=== PATIENT | female | born 1955 | race Caucasian/White ===

== ENCOUNTER 2017-02-05 08:00 | Outpatient (CLI) | payer OTHER | END 2017-02-05 23:59 | DX: R20.2 Paresthesia of skin (principal) ==

== ENCOUNTER 2017-02-07 09:36 | Outpatient (CLI) | payer OTHER | END 2017-02-07 23:59 | DX: R73.9 Hyperglycemia, unspecified (principal) ==

== ENCOUNTER 2017-05-15 06:52 | Outpatient (CLI) | payer OTHER ==
[2017-05-15 07:33] LABS: ALBUMIN/GLOBULIN RATIO 1.4 (1.0-2.2); BILIRUBIN,TOTAL 0.6 mg/dL (0.2-1.0); CALCIUM 9.5 mg/dL (8.5-10.3); CREATININE 0.6 mg/dL (0.4-1.0); POTASSIUM 4.3 mmol/L (3.5-5.0); TOTAL PROTEIN 7.4 g/dL (6.7-8.2)
[2017-05-15 07:35] LABS: HEMOGLOBIN A1C 0.98 g/dL
== END 2017-05-15 06:53 | disposition home or self-care (01) ==
LOC: LAB 06:52
PROVIDERS: ATTEND Physician Assistant Medical
DX: E11.9 Type 2 diabetes mellitus without complications (principal); Z79.899 Other long term (current) drug therapy
CPT/HCPCS: 36415; 80053; 83036

== ENCOUNTER 2017-08-12 07:34 | Outpatient (CLI) | payer OTHER ==
--- NOTE | 2017-08-13 15:23 | Mammography Report ---
DIGITAL SCREENING MAMMOGRAPHY: 08/12/2017 COMPARISON: 11/07/2015 TECHNIQUE: Bilateral digital CC, exaggerated CC and MLO projections. FINDINGS: The breast tissue is heterogeneously dense. There is no dominant mass, architectural dist ortion, skin thickening, suspicious microcalcifications, or significant interval change. IMPRESSION: NEGATIVE, BI-RADS 1. SUGGEST ROUTINE FOLLOWUP IN 12 MONTHS. STANDARD QUALIFYING STATEMENTS 1. This examination was reviewed with the aid of Computer-Aided Detection (CAD). 2. A negative or benign imaging report should not delay biopsy if clinically suspicious findings are present. Consider surgical consultation if warranted. More than 5% of cancers are not identified by i maging. 3. Dense breasts may obscure an underlying neoplasm. JOB #: [id number] EXT JOB #:[id number]
== END 2017-08-12 07:35 | disposition home or self-care (01) ==
LOC: DI 07:34
PROVIDERS: ATTEND Physician Assistant Medical
DX: Z12.31 Encounter for screening mammogram for malignant neoplasm of breast (principal)
CPT/HCPCS: 77067

== ENCOUNTER 2017-08-28 07:00 | Outpatient (CLI) | payer OTHER ==
[2017-08-28 08:02] LABS: HEMOGLOBIN A1C 0.89 g/dL
== END 2017-08-28 07:01 | disposition home or self-care (01) ==
LOC: LAB 07:00
PROVIDERS: ATTEND Physician Assistant Medical
DX: E11.9 Type 2 diabetes mellitus without complications (principal); Z79.899 Other long term (current) drug therapy
CPT/HCPCS: 36415; 82947; 83036

== ENCOUNTER 2017-12-30 07:01 | Outpatient (CLI) | payer OTHER ==
[2017-12-30 08:11] LABS: HEMOGLOBIN A1C 0.86 g/dL; HEMOGLOBIN A1C % 7.4 % (4.6-6.2)
== END 2017-12-30 07:02 | disposition home or self-care (01) ==
LOC: LAB 07:01
PROVIDERS: ATTEND Physician Assistant Medical
DX: E11.9 Type 2 diabetes mellitus without complications (principal); Z79.899 Other long term (current) drug therapy
CPT/HCPCS: 36415; 82947; 83036

== ENCOUNTER 2018-04-07 07:13 | Outpatient (CLI) | payer OTHER ==
[2018-04-07 08:25] LABS: HB2 TOTAL 15.5 g/dL; HEMOGLOBIN A1C 0.79 g/dL; HEMOGLOBIN A1C % 6.8 % (4.6-6.2)
== END 2018-04-07 07:14 | disposition home or self-care (01) ==
LOC: LAB 07:13
PROVIDERS: ATTEND Physician Assistant Medical
DX: E11.9 Type 2 diabetes mellitus without complications (principal); Z79.899 Other long term (current) drug therapy
CPT/HCPCS: 36415; 82947; 83036

== ENCOUNTER 2018-06-08 06:56 | Outpatient (CLI) | payer OTHER ==
[2018-06-08 07:12] LABS: BASOPHILS # (AUTO) 0.1 10^3/uL (0.0-0.1); BASOPHILS % (AUTO) 1.4 %; EOSINOPHILS # (AUTO) 0.1 10^3/uL (0.0-0.7); EOSINOPHILS % (AUTO) 1.6 %; MEAN CORPUSCULAR HEMOGLOBIN 30.8 pg (27.0-31.0); MEAN CORPUSCULAR HGB CONC 34.6 g/dL (32.0-36.0); MEAN CORPUSCULAR VOLUME 88.9 fL (81.0-99.0); MEAN PLATELET VOLUME 9.7 fL (7.9-10.8); MONOCYTES # (AUTO) 0.6 10^3/uL (0.0-1.0); MONOCYTES % (AUTO) 8.1 %; NEUTROPHILS # (AUTO) 4.7 10^3/uL (1.5-6.6); NEUTROPHILS % (AUTO) 61.9 %; PLT - PLATELET COUNT 192 10^3/uL (130-450); RED BLOOD COUNT 4.56 10^6/uL (4.20-5.40); WHITE BLOOD COUNT 7.5 x10^3/uL (4.8-10.8)
[2018-06-08 07:56] LABS: ALBUMIN 4.2 g/dL (3.2-5.5); ALBUMIN/GLOBULIN RATIO 1.2 (1.0-2.2); ALKALINE PHOSPHATASE 57 IU/L (42-121); ALT ALANINE AMINOTRANSFERASE 19 IU/L (10-60); AST ASPARTATE AMINOTRANSFERASE 20 IU/L (10-42); BILIRUBIN,TOTAL 0.8 mg/dL (0.2-1.0); BUN - BLOOD UREA NITROGEN 16 mg/dL (6-20); CALCIUM 9.6 mg/dL (8.5-10.3); CARBON DIOXIDE - CO2 25 mmol/L (21-32); CHLORIDE 102 mmol/L (101-111); CHOL/HDL RATIO 4.8 (<4.4); CHOLESTEROL 269 mg/dL; CREATININE 0.6 mg/dL (0.4-1.0); GFR - MDRD 102 (>89); GLUCOSE 136 mg/dL (70-100); HDL CHOLESTEROL 56 mg/dL; LDL CHOLESTEROL,CALCULATED 165 mg/dL; LDL/HDL RATIO 2.9 (<4.4); SODIUM 134 mmol/L (135-145); TOTAL PROTEIN 7.7 g/dL (6.7-8.2); VLDL CHOLESTEROL 48 mg/dL
[2018-06-09 15:17] LABS: HEPATITIS C ANTIBODY NON-REACTIVE (NON-REACTIVE)
== END 2018-06-08 06:57 | disposition home or self-care (01) ==
LOC: LAB 06:56
PROVIDERS: ATTEND Physician Assistant Medical
DX: Z00.00 Encounter for general adult medical examination without abnormal findings (principal); Z13.818 Encounter for screening for other digestive system disorders; Z72.9 Problem related to lifestyle, unspecified
CPT/HCPCS: 36415; 80053; 80061; 83721; 84443; 85025; 86803

== ENCOUNTER 2018-07-07 06:52 | Outpatient (CLI) | payer OTHER ==
[2018-07-07 07:39] LABS: HB2 TOTAL 14.3 g/dL; HEMOGLOBIN A1C 0.79 g/dL; HEMOGLOBIN A1C % 7.2 % (4.6-6.2)
== END 2018-07-07 06:53 | disposition home or self-care (01) ==
LOC: LAB 06:52
PROVIDERS: ATTEND Physician Assistant Medical
DX: E11.9 Type 2 diabetes mellitus without complications (principal); Z79.899 Other long term (current) drug therapy
CPT/HCPCS: 36415; 83036

== ENCOUNTER 2018-09-14 10:28 | Outpatient (CLI) | payer OTHER | END 2018-09-14 10:29 | disposition home or self-care (01) | LOC: LAB 10:28 | PROVIDERS: ATTEND Physician Assistant Medical | DX: Z79.899 Other long term (current) drug therapy (principal) | CPT/HCPCS: 36415; 82565; 84520 ==

== ENCOUNTER 2018-10-02 07:56 | Outpatient (CLI) | payer OTHER ==
[2018-10-02] MEDS ORDERED: GADOBUTROL 7.5 MMOL/7.5 ML VIAL ONE (08:16)
[2018-10-02] MEDS ORDERED: GADOBUTROL 7.5 MMOL/7.5 ML VIAL IVP ONE ×2 (10:23)
--- NOTE | 2018-10-05 15:03 | MRI Report ---
Reason: ABNORMAL BREAST FINDING Procedure Date: 10/02/2018 Accession Number: [id number] / [id number] Procedure: MRI - Breast Bilateral W/WO Contrast CPT Code: FULL RESULT: EXAM: Breast Bilateral W/WO Contrast DATE: 10/02/2018 9:17 AM CLINICAL HISTORY: ABNORMAL BREAST FINDING on outside imaging; reported as distortion in the 11 o'clock left breast. TECHNIQUE: Using a dedicated breast coil, axial precontrast STIR, T1, dynamic postcontrast axial 3-D images, axial 3-D high resolution images, and postcontrast diffusion weighted images were obtained, 7 ml of gadolinium was administered intravenously. Post-processing with dynamic contrast enhancement analysis and multi-planar reformations were performed with CyActive. COMPARISON: 2-D reconstructed images from a diagnostic 2-D/3-D mammogram dated 06/23/2018; internal mammograms 08/12/2017 and 11/07/2015 FINDINGS: Exam is technically limited as there is contrast within the heart and internal mammary vessels on precontrast scan (no pre-contrast fat-saturated T1 imaging performed). For this reason, the exam will need to be repeated for technical reasons. IMPRESSION: Technically inadequate exam will need to be repeated. Patient will be contacted and the repeat exam scheduled.
== END 2018-10-02 07:57 | disposition home or self-care (01) ==
LOC: DI 07:56
PROVIDERS: ATTEND Physician Assistant Medical
DX: R92.8 Other abnormal and inconclusive findings on diagnostic imaging of breast (principal)
CPT/HCPCS: 77059; A9585

== ENCOUNTER 2018-11-09 09:46 | Outpatient (CLI) | payer OTHER ==
[2018-11-09] MEDS ORDERED: LIDOCAINE 1% 10 ML MDV ONE (09:47)
--- NOTE | 2018-11-09 16:34 | Mammography Report ---
Reason: LEFT BREAST ASYMMETRY 9 O'CLOCK Procedure Date: 11/09/2018 Accession Number: [id number] / [id number] Procedure: TWAN - Diagnostic Dig LT CPT Code: FULL RESULT: EXAM: Diagnostic Dig LT DATE: 11/09/2018 11:34 AM CLINICAL HISTORY: Abnormal finding on outside study in the left breast. Internal breast MRI showed architectural distortion without threshold enhancement in the 9:00 breast, 4 cm from nipple, scheduled for possible 3D guided stereotactic biopsy. TECHNIQUE: Bilateral CC and MLO views were obtained. COMPARISON: Outside mammographic images 06/23/2018 through 11/07/2015. Recent breast MRI 10/02/2018. FINDINGS: The breasts demonstrate heterogeneously dense fibroglandular parenchyma bilaterally. In the 9:00 breast, 4 cm from nipple there is a 2.5 x 2.7 x 18 mm region of architectural distortion corresponding to initial mammographic finding of concern as well as breast MRI finding. There are no suspicious calcifications, no definite associated mass. IMPRESSION: 2.7 cm area of architectural distortion 9:00 left breast. Suspicious. BI-RADS Category 4. RECOMMENDATION: 3D guided stereotactic breast biopsy has been scheduled. Due to logistical reasons, biopsy will be performed later this week. BI-RADS CATEGORY 4: Suspicious. STANDARD QUALIFYING STATEMENTS: 1. This examination was not reviewed with the aid of Computer-Aided Detection (CAD). 2. A negative or benign imaging report should not preclude biopsy if clinically suspicious findings are present. 3. Dense breasts may obscure an underlying neoplasm. 4. This examination was reviewed with the aid of 3D breast imaging (tomosynthesis).
== END 2018-11-09 23:59 | disposition home or self-care (01) ==
LOC: DI 09:46
PROVIDERS: ATTEND Physician Assistant Medical
DX: R92.8 Other abnormal and inconclusive findings on diagnostic imaging of breast (principal)

== ENCOUNTER 2018-11-11 06:59 | Outpatient (CLI) | payer OTHER ==
[2018-11-11 07:40] LABS: HB2 TOTAL 14.1 g/dL; HEMOGLOBIN A1C 0.71 g/dL; HEMOGLOBIN A1C % 6.8 % (4.6-6.2)
== END 2018-11-11 07:00 | disposition home or self-care (01) ==
LOC: LAB 06:59
PROVIDERS: ATTEND Physician Assistant Medical
DX: E11.9 Type 2 diabetes mellitus without complications (principal); Z79.899 Other long term (current) drug therapy
CPT/HCPCS: 36415; 82947; 83036

== ENCOUNTER 2018-12-21 07:06 | Outpatient (CLI) | payer BC ==
[2018-12-21 07:41] LABS: CHOL/HDL RATIO 4.5 (<4.4); CHOLESTEROL 246 mg/dL; HDL CHOLESTEROL 55 mg/dL; LDL CHOLESTEROL,CALCULATED 139 mg/dL; LDL/HDL RATIO 2.5 (<4.4); VLDL CHOLESTEROL 52 mg/dL
== END 2018-12-21 07:07 | disposition home or self-care (01) ==
LOC: LAB 07:06
PROVIDERS: ATTEND Physician Assistant Medical
DX: E78.2 Mixed hyperlipidemia (principal)
CPT/HCPCS: 36415; 80061; 83721

== ENCOUNTER 2019-02-24 07:06 | Outpatient (CLI) | payer BC ==
[2019-02-24 07:44] LABS: ALBUMIN 4.2 g/dL (3.2-5.5); ALBUMIN/GLOBULIN RATIO 1.3 (1.0-2.2); BILIRUBIN,TOTAL 0.6 mg/dL (0.2-1.0); CREATININE 0.6 mg/dL (0.4-1.0); TOTAL PROTEIN 7.4 g/dL (6.7-8.2)
[2019-02-24 08:22] LABS: HB2 TOTAL 15.2 g/dL; HEMOGLOBIN A1C 0.76 g/dL; HEMOGLOBIN A1C % 6.7 % (4.6-6.2)
== END 2019-02-24 07:07 | disposition home or self-care (01) ==
LOC: LAB 07:06
PROVIDERS: ATTEND Internal Medicine
DX: E11.9 Type 2 diabetes mellitus without complications (principal)
CPT/HCPCS: 36415; 80053; 81599; 83036; 84681

== ENCOUNTER 2019-04-27 05:36 | Emergency (ER) | payer BC ==
[2019-04-27 05:43] VITALS: BP 160/84
[2019-04-27] MEDS ORDERED: PROPARACAINE 0.5% OPHTH DROPS 15 ML LEFTEYE STA (05:51)
[2019-04-27] MEDS ORDERED: NEOMYCIN/POLYMYX/DEXAMETH OPHTH OINT LEFTEYE STA (06:01)
--- NOTE | 2019-04-27 06:05 | ED Physician Documentation ---
PD HPI OPHTHO - Stated complaint Stated Complaint: L EYE PX - Chief complaint Chief Complaint: Heent - History obtained from History obtained from: Patient - History of Present Illness Timing - onset: Last night Timing - duration: Hours Timing - details: Abrupt onset, Still present Location: Left Quality / character: Throbbing, Sharp Associated symptoms: Redness, Tearing, FB sensation Contributing factors: Wears contacts Similar symptoms before: Diagnosis (corneal abrasion) Recently seen: Not recently seen - Additional information Additional information: Previously well 63-year-old female wears a single contact lens for accommodation and she try to get this out of her left eye last night and scratched her cornea. She has only been comfortable with a patch on and she is come in early this morning for treatment. She is planning on traveling tomorrow and will be driving through [employer] this afternoon. Review of Systems Constitutional: denies: Fever Eyes: reports: Irritation. denies: Decreased vision Ears: denies: Ear pain Nose: denies: Rhinorrhea / runny nose, Congestion Throat: denies: Sore throat Respiratory: denies: Cough GI: denies: Vomiting PD PAST MEDICAL HISTORY - Past Medical History Cardiovascular: Hypertension Endocrine/Autoimmune: Type 2 diabetes - Past Surgical History /[employer]: Hysterectomy, Oophrectomy - Present Medications Home Medications: Ambulatory Orders Medication Instructions Recorded Confirmed Albuterol Sulfate [Proair Hfa 1 - 2 puffs INH Q4H PRN 01/15/19 01/15/19 Inhaler] Aspirin 81 mg PO DAILY 01/15/19 01/15/19 B-Complex with Vitamin C [Super B 1 each PO DAILY 01/15/19 01/15/19 Complex-Vitamin C] Calcium Carbonate [Calcium] 500 mg PO DAILY 01/15/19 01/15/19 Cinnamon Plus Chromium 200 - 1,000 mcg PO DAILY 01/15/19 01/15/19 Estradiol 1 mg PO DAILY 01/15/19 01/15/19 Fluticasone/Salmeterol [Advair 1 each IH BID PRN 01/15/19 01/15/19 100-50 Diskus] Ibuprofen 600 mg PO BID 01/15/19 01/15/19 Lisinopril/Hydrochlorothiazide 1 each PO DAILY 01/15/19 01/15/19 [Lisinopril-Hctz 10-12.5 mg Tab] Multivitamin [Daily Multiple 1 each PO DAILY 01/15/19 01/15/19 Vitamin] Ranitidine HCl [Acid Associate Professor [employer]] 75 mg PO DAILY 01/15/19 01/15/19 Sertraline HCl 100 mg PO DAILY 01/15/19 01/15/19 metFORMIN [Glucophage] 500 - 1,000 mg PO BID 01/15/19 01/15/19 Neomycin/Poly/Dexam Ophth Oint 0.5 gm LEFTEYE QID #1 tube 04/27/19 [Maxitrol Ophth Oint] - Allergies Allergies/Adverse Reactions: Allergies Allergy/AdvReac Type Severity Reaction Status Date / Time lobster Allergy Unknown Uncoded 04/27/19 05:42 PD ED PE NORMAL - Vitals Vital signs reviewed: Yes (hypertensive ) - General General: Alert and oriented X 3, Well developed/nourished, Other (patient laying with eyes closed ) - HEENT HEENT: Atraumatic, PERRL, EOMI, Other (The left eye is injected and there is an obvious corneal abrasion to the lateral aspect of the left cornea. The lid is everted there is no evidence of FB or the lens itself. There is no hyphema or distortion of the pupil or globe. 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, No motor deficit, No sensory deficit, Normal speech Eye Opening: Spontaneous Motor: Obeys Commands Verbal: Oriented GCS Score: 15 - Psych Psych: Normal mood, Normal affect Results - Vitals Vitals: Vital Signs - 24 hr 04/27/19 05:38 Temperature 36.7 C Heart Rate 91 Respiratory 15 Rate Blood Pressure 160/84 H O2 Saturation 98 Oxygen O2 Source Room air PD MEDICAL DECISION MAKING - ED course Complexity details: reviewed old records, considered differential, d/w patient ED course: 63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 She is otherwise only comfortable with her eye closed. Maxitrol ophthalmic ointment is instilled. She is dispensed the bottle of Alcaine with this strict instruction to use this to drive through [place]. She is aware of the usual restriction of its use and vows to use this for this purpose only. I felt this was a much safer alternative to driving through [place] with monocular vision. Departure - Departure Disposition: 01 Home, Self Care Clinical Impression: Corneal abrasion due to contact lens Qualifiers: Laterality: left Qualified Code(s): H18.822 - Corneal disorder due to contact lens, left eye Condition: Stable Instructions: ED Eye Injury Corneal Abrasion Follow-Up: Te Christianson MD [Provider Admit Priv/Credential] - Prescriptions: Neomycin/Poly/Dexam Ophth Oint [Maxitrol Ophth Oint] 0.5 gm LEFTEYE QID #1 tube
== END 2019-04-27 06:17 | disposition home or self-care (01) ==
LOC: ED 05:36
DX: H18.822 Corneal disorder due to contact lens, left eye (principal); I10 Essential (primary) hypertension; E11.9 Type 2 diabetes mellitus without complications; Z79.84 Long term (current) use of oral hypoglycemic drugs; Z79.82 Long term (current) use of aspirin
CPT/HCPCS: 99283; A9270; J3490

== ENCOUNTER 2019-12-30 07:34 | Outpatient (CLI) | payer BC ==
[2019-12-30 08:09] LABS: HB2 TOTAL 13.6 g/dL; HEMOGLOBIN A1C 0.7 g/dL; HEMOGLOBIN A1C % 6.9 % (4.6-6.2)
[2019-12-30 08:13] LABS: MICROALBUM/CREATININE RATIO,UR 3.7 ug/mg (<30.0); MICROALBUMIN,URINE 0.4 mg/dL (0-300.0)
[2019-12-30 08:15] LABS: ALBUMIN 4.3 g/dL (3.2-5.5); ALBUMIN/GLOBULIN RATIO 1.4 (1.0-2.2); ALKALINE PHOSPHATASE 56 IU/L (42-121); ALT ALANINE AMINOTRANSFERASE 18 IU/L (10-60); AST ASPARTATE AMINOTRANSFERASE 17 IU/L (10-42); BASOPHILS # (AUTO) 0.1 10^3/uL (0.0-0.1); BASOPHILS % (AUTO) 1.1 %; BILIRUBIN,TOTAL 0.6 mg/dL (0.2-1.0); BUN - BLOOD UREA NITROGEN 23 mg/dL (6-20); CALCIUM 9.7 mg/dL (8.5-10.3); CARBON DIOXIDE - CO2 27 mmol/L (21-32); CHLORIDE 100 mmol/L (101-111); CHOL/HDL RATIO 4.5 (<4.4); CHOLESTEROL 267 mg/dL; CREATININE 0.6 mg/dL (0.4-1.0); EOSINOPHILS # (AUTO) 0.1 10^3/uL (0.0-0.7); EOSINOPHILS % (AUTO) 1.4 %; GFR - MDRD 101 (>89); GLUCOSE 162 mg/dL (70-100); HDL CHOLESTEROL 60 mg/dL; HGB - HEMOGLOBIN 13.8 g/dL (12.0-16.0); LDL CHOLESTEROL,CALCULATED 162 mg/dL; LDL/HDL RATIO 2.7 (<4.4); LYMPHOCYTES % (AUTO) 30.7 %; MEAN CORPUSCULAR HEMOGLOBIN 32.5 pg (27.0-31.0); MEAN CORPUSCULAR VOLUME 92.9 fL (81.0-99.0); MEAN PLATELET VOLUME 11.1 fL (7.9-10.8); MONOCYTES # (AUTO) 0.5 10^3/uL (0.0-1.0); MONOCYTES % (AUTO) 7.5 %; NEUTROPHILS # (AUTO) 3.8 10^3/uL (1.5-6.6); NEUTROPHILS % (AUTO) 58.5 %; PLT - PLATELET COUNT 196 10^3/uL (130-450); RED BLOOD COUNT 4.24 10^6/uL (4.20-5.40); RED CELL DISTRIBUTION WIDTH 12.2 % (12.0-15.0); SODIUM 137 mmol/L (135-145); TOTAL PROTEIN 7.4 g/dL (6.7-8.2); VLDL CHOLESTEROL 45 mg/dL; WHITE BLOOD COUNT 6.4 x10^3/uL (4.8-10.8)
== END 2019-12-30 07:35 | disposition home or self-care (01) ==
LOC: LAB 07:34
PROVIDERS: ATTEND Internal Medicine
DX: E11.9 Type 2 diabetes mellitus without complications (principal)
CPT/HCPCS: 36415; 80053; 80061; 82043; 82570; 83036; 83721; 85025

== ENCOUNTER 2020-08-18 11:08 | Outpatient (CLI) | payer BC ==
[2020-08-18 11:38] LABS: ALBUMIN 4.6 g/dL (3.2-5.5); ALBUMIN/GLOBULIN RATIO 1.4 (1.0-2.2); BILIRUBIN,TOTAL 0.7 mg/dL (0.2-1.0); CALCIUM 9.7 mg/dL (8.5-10.3); CREATININE 0.7 mg/dL (0.4-1.0); TOTAL PROTEIN 7.9 g/dL (6.7-8.2)
[2020-08-18 11:48] LABS: CHOL/HDL RATIO 4.3 (<4.4); CHOLESTEROL 262 mg/dL; HDL CHOLESTEROL 61 mg/dL; LDL CHOLESTEROL,CALCULATED 145 mg/dL; LDL/HDL RATIO 2.4 (<4.4); VLDL CHOLESTEROL 56 mg/dL
[2020-08-18 12:01] LABS: HEMOGLOBIN A1c% 6.8 % (4.27-6.07)
== END 2020-08-18 11:09 | disposition home or self-care (01) ==
LOC: LAB 11:08
PROVIDERS: ATTEND Internal Medicine
DX: E11.9 Type 2 diabetes mellitus without complications (principal)
CPT/HCPCS: 36415; 80053; 80061; 83036; 83721

== ENCOUNTER 2020-11-22 08:25 | Outpatient (CLI) | payer BC ==
[2020-11-22 08:52] LABS: ALBUMIN 4.6 g/dL (3.2-5.5); BILIRUBIN,DIRECT 0.1 mg/dL (0.1-0.5); BILIRUBIN,TOTAL 0.6 mg/dL (0.2-1.0); TOTAL PROTEIN 7.6 g/dL (6.7-8.2)
== END 2020-11-22 08:26 | disposition home or self-care (01) ==
LOC: LAB 08:25
PROVIDERS: ATTEND Internal Medicine
DX: I10 Essential (primary) hypertension (principal)
CPT/HCPCS: 36415; 80076

== ENCOUNTER 2020-11-23 08:12 | Outpatient (CLI) | payer BC ==
[2020-11-23 08:46] LABS: CHOL/HDL RATIO 2.6 (<4.4); CHOLESTEROL 164 mg/dL; HDL CHOLESTEROL 63 mg/dL; LDL CHOLESTEROL,CALCULATED 69 mg/dL; LDL/HDL RATIO 1.1 (<4.4); VLDL CHOLESTEROL 32 mg/dL
== END 2020-11-23 08:13 | disposition home or self-care (01) ==
LOC: LAB 08:12
PROVIDERS: ATTEND Internal Medicine
DX: E11.69 Type 2 diabetes mellitus with other specified complication (principal); E78.5 Hyperlipidemia, unspecified
CPT/HCPCS: 80061; 83721

== ENCOUNTER 2021-02-12 07:37 | Outpatient (CLI) | payer BC ==
[2021-02-13 12:07] LABS: CHOL/HDL RATIO 2.7 (<4.4); CHOLESTEROL 177 mg/dL; HDL CHOLESTEROL 66 mg/dL; LDL CHOLESTEROL,CALCULATED 77 mg/dL; LDL/HDL RATIO 1.2 (<4.4); TRIGLYCERIDES 170 mg/dL; VLDL CHOLESTEROL 34 mg/dL
[2021-02-13 12:14] LABS: ESTIMATED AVERAGE GLUCOSE 151 mg/dL (70-100); HEMOGLOBIN A1c% 6.9 % (4.27-6.07)
== END 2021-02-12 07:38 | disposition home or self-care (01) ==
LOC: LAB 07:37
PROVIDERS: ATTEND Internal Medicine
DX: E11.69 Type 2 diabetes mellitus with other specified complication (principal); E78.5 Hyperlipidemia, unspecified
CPT/HCPCS: 36415; 80061; 83036; 83721

== ENCOUNTER 2021-08-12 07:28 | Outpatient (CLI) | payer BC ==
[2021-08-12 07:45] LABS: BASOPHILS # (AUTO) 0.1 10^3/uL (0.0-0.1); EOSINOPHILS # (AUTO) 0.1 10^3/uL (0.0-0.7); EOSINOPHILS % (AUTO) 1.5 %; HCT - HEMATOCRIT 38.1 % (37.0-47.0); HGB - HEMOGLOBIN 13.2 g/dL (12.0-16.0); LYMPHOCYTES # (AUTO) 1.8 10^3/uL (1.5-3.5); LYMPHOCYTES % (AUTO) 26.3 %; MEAN CORPUSCULAR HEMOGLOBIN 31.6 pg (27.0-31.0); MEAN CORPUSCULAR HGB CONC 34.6 g/dL (32.0-36.0); MEAN CORPUSCULAR VOLUME 91.1 fL (81.0-99.0); MEAN PLATELET VOLUME 10.7 fL (7.9-10.8); MONOCYTES # (AUTO) 0.5 10^3/uL (0.0-1.0); MONOCYTES % (AUTO) 7.9 %; NEUTROPHILS # (AUTO) 4.2 10^3/uL (1.5-6.6); NEUTROPHILS % (AUTO) 62.9 %; PLT - PLATELET COUNT 165 10^3/uL (130-450); RED BLOOD COUNT 4.18 10^6/uL (4.20-5.40); RED CELL DISTRIBUTION WIDTH 11.9 % (12.0-15.0); WHITE BLOOD COUNT 6.7 x10^3/uL (4.8-10.8)
[2021-08-12 07:56] LABS: ALBUMIN 4.5 g/dL (3.2-5.5); ALBUMIN/GLOBULIN RATIO 1.6 (1.0-2.2); BILIRUBIN,TOTAL 0.5 mg/dL (0.2-1.0); CALCIUM 10.1 mg/dL (8.5-10.3); CREATININE 0.7 mg/dL (0.4-1.0); POTASSIUM 4.4 mmol/L (3.5-5.0); TOTAL PROTEIN 7.3 g/dL (6.7-8.2)
[2021-08-12 08:06] LABS: CREATININE,URINE 203.6 mg/dL; MICROALBUM/CREATININE RATIO,UR 8.8 ug/mg (<30.0); MICROALBUMIN,URINE 1.8 mg/dL (0-300.0)
[2021-08-12 08:09] LABS: ESTIMATED AVERAGE GLUCOSE 154 mg/dL (70-100)
== END 2021-08-12 07:29 | disposition home or self-care (01) ==
LOC: LAB 07:28
PROVIDERS: ATTEND Internal Medicine
DX: E11.9 Type 2 diabetes mellitus without complications (principal)
CPT/HCPCS: 36415; 80053; 82043; 82570; 83036; 85025